=== PATIENT | male | born 1990 | race Caucasian/White ===

== ENCOUNTER 2019-09-01 02:23 | Emergency (ER) | payer MEDICAID ==
[~2019-09-01] VITALS: Ht 182.9 cm; Wt 90.9 kg
--- NOTE | 2019-09-01 03:10 | NUR ---
Carlos hickman in EDM - 09/01/19 at 0311 by [email or web address] Patient has a history of an abscess on the buttock. He states recently it "popped." Now patient has pain.
[2019-09-01 03:11] LABS: BASOPHILS # (AUTO) 0.02 x10^3/uL (0-0.1); BASOPHILS % (AUTO) 0 % (0-1); EOSINOPHILS # (AUTO) 0.13 x10^3/uL (0-0.4); EOSINOPHILS % (AUTO) 1 % (1-7); LYMPHOCYTES # (AUTO) 1.94 x10^3/uL (1-3.4); LYMPHOCYTES % (AUTO) 20 % (22-44); MD NO; MEAN CORPUSCULAR HEMOGLOBIN 31.9 pg (27.5-34.5); MEAN CORPUSCULAR HGB CONC 33.8 g/dL (33.2-36.2); MEAN CORPUSCULAR VOLUME 94.3 fL (81-97); MEAN PLATELET VOLUME 9.8 fL (7.4-10.4); MONOCYTES # (AUTO) 0.67 x10^3/uL (0.2-0.8); MONOCYTES % (AUTO) 7 % (2-9); NEUTROPHILS % (AUTO) 72 % (42-75); PLATELET COUNT 178 x10^3/uL (130-400); RED BLOOD COUNT 5.62 x10^6/uL (4.38-5.82); RED CELL DISTRIBUTION WIDTH 13.6 % (9.4-14.8)
[2019-09-01 03:22] LABS: ANION GAP 7 mmol/L (5-15); CALCIUM 8.8 mg/dL (8.5-10.1); CHLORIDE 98 mmol/L (98-107); CREATININE 0.93 mg/dL (0.7-1.3)
[2019-09-01 03:43] VITALS: BP 99/76
--- NOTE | 2019-09-01 03:44 | NUR ---
Patient/Caregiver given discharge instructions and they have confirmed that they understand the instructions. Patient ambulatory with steady gait. Belongings with patient.
== END 2019-09-01 03:46 | disposition home or self-care (01) ==
LOC: ED 03:00
CPT/HCPCS: 36415; 80048; 85025; 93005; 99284

== ENCOUNTER 2021-05-24 21:15 | Emergency (ER) | payer MEDICAID ==
[~2021-05-24] VITALS: Ht 182.9 cm; Wt 97.7 kg
[2021-05-24 21:17] VITALS: BP 176/97
--- NOTE | 2021-05-24 22:32 | NUR ---
PT PRESENTS TO ER FOR BILATERAL LEG SWELLING THAT STARTED TODAY, PT STATES IT IS NOT ASSOCIATED WITH PAIN, THIS RN ASSESSED BOTH LEGS AND NOTES SLIGHT SWELLING NON PITTING
--- NOTE | 2021-05-24 22:34 | NUR ---
MD AT BEDSIDE TO DISCUSS POC
[2021-05-24 22:44] LABS: BASOPHILS % (AUTO) 1 % (0-1); EOSINOPHILS % (AUTO) 4 % (1-7); LYMPHOCYTES % (AUTO) 40 % (22-44); MEAN CORPUSCULAR HEMOGLOBIN 31.5 pg (27.5-34.5); MEAN CORPUSCULAR HGB CONC 34.4 g/dL (33.2-36.2); MEAN PLATELET VOLUME 8.9 fL (7.4-10.4); MONOCYTES % (AUTO) 9 % (2-9); NEUTROPHILS % (AUTO) 46 % (42-75); PLATELET COUNT 219 x10^3/uL (130-400); RED BLOOD COUNT 5.32 x10^6/uL (4.38-5.82); RED CELL DISTRIBUTION WIDTH 13.8 % (9.4-14.8)
[2021-05-24 22:46] LABS: ALBUMIN 3.6 g/dL (3.4-5.0); ANION GAP 7 mmol/L (5-15); CALCIUM 9.1 mg/dL (8.5-10.1); CHLORIDE 100 mmol/L (98-107); CREATININE 0.86 mg/dL (0.7-1.3)
== END 2021-05-25 00:17 | disposition home or self-care (01) ==
LOC: ED 23:59
DX: R60.0 Localized edema (principal); E11.9 Type 2 diabetes mellitus without complications; F17.200 Nicotine dependence, unspecified, uncomplicated
CPT/HCPCS: 36415; 80048; 82040; 83880; 85025; 99283